=== PATIENT | female | born 1965 | race Caucasian/White ===

== ENCOUNTER → 2020-02-07 | Outpatient (CLI) | payer OTHER ==
[~2020-02-07] MED LIST: DICLOFENAC SODI75 MG PO; TRAMADOL 50 MG50 MG PO
== END ==
LOC: M.RAD 09:09
DX: M16.11 Unilateral primary osteoarthritis, right hip (principal); M85.812 Other specified disorders of bone density and structure, left shoulder; M19.012 Primary osteoarthritis, left shoulder; M85.811 Other specified disorders of bone density and structure, right shoulder; M85.88 Other specified disorders of bone density and structure, other site; M25.78 Osteophyte, vertebrae; M51.36 Other intervertebral disc degeneration, lumbar region; M41.85 Other forms of scoliosis, thoracolumbar region; G89.29 Other chronic pain